=== PATIENT | female | born 1965 | race Caucasian/White ===

== ENCOUNTER 2017-08-31 10:45 | Emergency (ER) | payer OTHER ==
[~2017-08-31] VITALS: Ht 162.6 cm; Wt 59.9 kg
[2017-08-31 10:48] VITALS: BP 137/84
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
[2017-08-31 11:50] VITALS: BP 137/84
--- NOTE | 2017-08-31 11:50 | NUR ---
Patient discharged with v/s stable. Written and verbal after care instructions given and explained. Patient verbalized understanding. Ambulatory with steady gait. All questions addressed prior to discharge. Advised to follow up with PMD.
== END 2017-08-31 11:50 | disposition home or self-care (01) ==
LOC: MED 10:45
DX: S19.9XXA Unspecified injury of neck, initial encounter (principal); Z88.1 Allergy status to other antibiotic agents; Y08.89XA Assault by other specified means, initial encounter; Y93.89 Activity, other specified; Y99.8 Other external cause status; Y92.89 Other specified places as the place of occurrence of the external cause
CPT/HCPCS: 99281

== ENCOUNTER 2019-10-31 12:55 | Emergency (ER) | payer OTHER ==
[~2019-10-31] VITALS: Ht 162.6 cm; Wt 63.5 kg
[2019-10-31 12:59] VITALS: BP 120/69
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
--- NOTE | 2019-10-31 13:16 | NUR ---
ERMD AT BEDSIDE
[2019-10-31] MEDS ORDERED: IBUPROFEN 400 MG TAB PO ONE (13:25)
--- NOTE | 2019-10-31 13:33 | NUR ---
RAD AT BEDSIDE
--- NOTE | 2019-10-31 14:35 | NUR ---
PT RESTING IN BED, SIDE RAIL X1
[2019-10-31 18:14] VITALS: BP 116/61
== END 2019-10-31 18:14 | disposition home or self-care (01) ==
LOC: MED 12:55
DX: R07.89 Other chest pain (principal); Z88.0 Allergy status to penicillin; Z98.890 Other specified postprocedural states
CPT/HCPCS: 36415; 71045; 84484; 93005; 99285; Q0092

== ENCOUNTER 2020-02-19 08:00 | Emergency (ER) | payer OTHER ==
[~2020-02-19] VITALS: Ht 162.6 cm; Wt 63.5 kg
[2020-02-19 08:10] VITALS: BP 113/59
--- NOTE | 2020-02-19 08:10 | NUR ---
TO TENT AMBULATORY
--- NOTE | 2020-02-19 08:20 | NUR ---
SEEN AND EXAMINED BY DAMON WITH ORDER AND CARRIED OUT
--- NOTE | 2020-02-19 09:15 | NUR ---
RESULT BACK AND NOTED BY ERMD AND FOR D/C
[2020-02-19 09:25] VITALS: BP 121/62
--- NOTE | 2020-02-19 09:25 | NUR ---
Patient discharged with v/s stable. Written and verbal after care instructions given and explained. Patient alert, oriented and verbalized understanding of instructions. Ambulatory with steady gait. All questions addressed prior to discharge. ID band removed. Patient advised to follow up with PMD. Rx of PREDNISONE, GUAIATUSSIN AC given. Patient educated on indication of medication including possible reaction and side effects. Opportunity to ask questions provided and answered.
== END 2020-02-19 09:25 | disposition home or self-care (01) ==
LOC: MED 08:00
DX: U07.1 COVID-19 (principal); J20.9 Acute bronchitis, unspecified; Z88.0 Allergy status to penicillin
CPT/HCPCS: 71045; 99283

== ENCOUNTER 2020-09-18 09:18 | Emergency (ER) | payer OTHER ==
[~2020-09-18] VITALS: Ht 162.6 cm; Wt 63.5 kg
[2020-09-18 09:25] VITALS: BP 107/66
[2020-09-18] MEDS ORDERED: METH4TAB27 PO (10:26)
[2020-09-18 10:33] VITALS: BP 107/66
== END 2020-09-18 10:30 | disposition home or self-care (01) ==
LOC: MED 09:18
DX: M48.02 Spinal stenosis, cervical region (principal); R20.0 Anesthesia of skin; Z88.0 Allergy status to penicillin
CPT/HCPCS: 99283

== ENCOUNTER 2020-11-03 15:07 | Emergency (ER) | payer OTHER ==
[~2020-11-03] VITALS: Ht 162.6 cm; Wt 72.6 kg
[~2020-11-03 15:07] MED LIST: METH4TAB27 PO
[2020-11-03 15:36] VITALS: BP 101/51
[2020-11-03] MEDS ORDERED: HYDROcodone/APAP 5/325 MG 1 TAB TAB PO ONE (16:15)
[2020-11-03] MEDS ORDERED: KETOROLAC 15 MG/ML VIAL IM ONE (16:15)
[2020-11-03] MEDS ORDERED: DEXAMETHASONE 10 MG/ML VIAL IM ONE (16:15)
[2020-11-03] MEDS ORDERED: IBUP-2213 PO (16:20)
[2020-11-03] MEDS ORDERED: ACET-8386 PO ×2 (16:20→16:27)
[2020-11-03] MEDS ORDERED: PRED20TA5 PO (16:20)
[2020-11-03] MEDS ORDERED: LID5T TP (16:20)
[2020-11-03] MEDS ORDERED: METH4TAB27 PO (16:26)
--- NOTE | 2020-11-03 17:14 | NUR ---
Patient discharged with v/s stable. Written and verbal after care instructions given and explained. Patient alert, oriented and verbalized understanding of instructions. Ambulatory with steady gait. All questions addressed prior to discharge. ID band removed. Patient advised to follow up with PMD. Rx of [place], Methyprednisolone, Ibuprofen, and Lidocaine patch given. Patient educated on indication of medication including possible reaction and side effects. Opportunity to ask questions provided and answered.
== END 2020-11-03 17:14 | disposition home or self-care (01) ==
LOC: MED 15:07
DX: G89.29 Other chronic pain (principal); M48.02 Spinal stenosis, cervical region; M48.061 Spinal stenosis, lumbar region without neurogenic claudication
CPT/HCPCS: 96372; 99284; J1100; J1885

== ENCOUNTER 2020-12-09 11:24 | Emergency (ER) | payer OTHER ==
[~2020-12-09] VITALS: Ht 162.6 cm; Wt 72.6 kg
[~2020-12-09 11:24] MED LIST changes: +ACET-8386 PO; +IBUP-2213 PO; +LID5T TP
[2020-12-09 11:34] VITALS: BP 138/83
--- NOTE | 2020-12-09 12:03 | NUR ---
PT AMBULATED TO BED 12
[2020-12-09] MEDS ORDERED: KETOROLAC 30 MG/ML VIAL IM ONE (12:20)
[2020-12-09] MEDS ORDERED: diazePAM 5 MG TAB PO ONE (12:20)
[2020-12-09] MEDS ORDERED: DEXAMETHASONE 10 MG/ML VIAL IM ONE (12:20)
--- NOTE | 2020-12-09 12:20 | NUR ---
55/F BIB SELF WITH C/O BACK AND NECK PAIN RADIATING DOWN HER LEGS. PATIENT STATES SHE HAS HAD CHRONIC BACK AND NECK PAIN X1 YEAR, STATES SHE HAS SPINAL SURGERY SCHEDULED ON MARCH 11 BUT STATES PAIN IS WORSENING. PATIENT STATES SHE TAKES IBUPROFEN AND HAS BEEN RX OF TWO MEDS BUT STATES "I CANNOT FUNCTION ON THOSE MEDS." PATIENT DENIES CP, SOB, FEVER OR CHILLS, ABLE TO AMBULATE WITHOUT ASSISTANCE.
[2020-12-09] MEDS ORDERED: METH4TAB27 PO (13:07)
[2020-12-09] MEDS ORDERED: ACET-8386 PO (13:07)
[2020-12-09 13:15] VITALS: BP 117/68
--- NOTE | 2020-12-09 13:15 | NUR ---
Patient discharged with v/s stable. Written and verbal after care instructions given and explained. Patient alert, oriented and verbalized understanding of instructions. Ambulatory with steady gait. All questions addressed prior to discharge. ID band removed. Patient advised to follow up with PMD. Rx of NORCO 5-325 AND METHYPRED-DP given. Patient educated on indication of medication including possible reaction and side effects. ADVISED TO NOT DRINK OR DRIVE WHILE USING NARCOTICS. Opportunity to ask questions provided and answered.
== END 2020-12-09 13:15 | disposition home or self-care (01) ==
LOC: MED 11:24
DX: M54.2 Cervicalgia (principal); M54.50 Low back pain, unspecified; G89.29 Other chronic pain; Z79.899 Other long term (current) drug therapy
CPT/HCPCS: 96372; 99284; J1100; J1885

== ENCOUNTER 2021-03-14 07:17 | Emergency (ER) | payer OTHER ==
[~2021-03-14] VITALS: Ht 162.6 cm; Wt 71.2 kg
[2021-03-14 07:51] VITALS: BP 133/86
[2021-03-14] MEDS ORDERED: methylPREDNISolone SS 40 MG in WATER STERILE 1 ML IM ONE (08:30)
[2021-03-14] MEDS ORDERED: MORPHINE SULFATE 2 MG/ML SYR IM ONE (08:30)
[2021-03-14] MEDS ORDERED: KETOROLAC 30 MG/ML VIAL IM ONE (08:30)
[2021-03-14] MEDS ORDERED: IBUP-2213 PO (08:50)
[2021-03-14] MEDS ORDERED: DICL100G5 TP (08:50)
[2021-03-14] MEDS ORDERED: LID5T TP (08:50)
[2021-03-14] MEDS ORDERED: PRED20TA5 PO (08:50)
[2021-03-14] MEDS ORDERED: WATER STERILE 10 ML MC ONE (09:04)
[2021-03-14] MEDS ORDERED: methylPREDNISolone SS 40 MG/ML VIAL ONE (09:05)
[2021-03-14 09:24] VITALS: BP 133/86
--- NOTE | 2021-03-14 09:24 | NUR ---
Patient discharged with v/s stable. Written and verbal after care instructions given and explained. Patient alert, oriented and verbalized understanding of instructions. Ambulatory with steady gait. All questions addressed prior to discharge. ID band removed. Patient advised to follow up with PMD. Rx of diclofenac, ibuprofen, lidocaine patch, prednisone given. Patient educated on indication of medication including possible reaction and side effects. Opportunity to ask questions provided and answered.
== END 2021-03-14 09:24 | disposition home or self-care (01) ==
LOC: MED 07:17
DX: M54.9 Dorsalgia, unspecified (principal); G89.29 Other chronic pain; Z88.0 Allergy status to penicillin; Z79.899 Other long term (current) drug therapy
CPT/HCPCS: 96372; 99284; J1885; J2270; J2920

== ENCOUNTER 2022-12-29 03:00 | Inpatient (IN) | payer OTHER ==
[~2022-12-29] VITALS: Ht 162.6 cm; Wt 65.8 kg
[~2022-12-29 03:00] MED LIST changes: -ACET-8386 PO; +ACET-8905 PO; +DICL100G32 TP; +PRED20TA5 PO
[2022-12-29 03:11] VITALS: BP 179/90; PULSE 60; RESP 18; TEMP 97.9; O2SAT 99
[2022-12-29 03:36] VITALS: O2SAT 98
[2022-12-29] MEDS ORDERED: DICYCLOMINE 20 MG/2 ML VIAL IM ONE (04:35)
[2022-12-29 05:49] LABS: BASOPHILS % (AUTO) 0.5 % (0.0-2.0); EOSINOPHILS % (AUTO) 0.3 % (0.0-4.0); HEMATOCRIT 37.5 % (36-48); HEMOGLOBIN 12.3 g/dL (12.0-16.0); LYMPHOCYTES # (AUTO) 1.4 K/uL (2.5-16.5); LYMPHOCYTES % (AUTO) 18.4 % (20.5-51.1); MEAN CORPUSCULAR HEMOGLOBIN 28 pg (27-31); MEAN CORPUSCULAR HGB CONC 33 g/dL (33-37); MEAN CORPUSCULAR VOLUME 86.6 fL (80-94); MONOCYTES # (AUTO) 0.4 K/uL (0.8-1.0); MONOCYTES % (AUTO) 5.1 % (1.7-9.3); NEUTROPHILS # (AUTO) 5.9 K/uL (1.8-7.7); NEUTROPHILS % (AUTO) 75.7 % (42.2-75.2); PLATELET COUNT (AUTO) 269 K/uL (140-450); RED BLOOD CELL COUNT(AUTO) 4.33 MIL/uL (4.20-5.40); RED CELL DISTRIBUTION WIDTH 14.4 % (11.6-13.7); WHITE BLOOD COUNT (AUTO) 7.8 K/uL (4.8-10.8)
[2022-12-29 06:01] LABS: ALBUMIN 3.7 g/dL (3.4-5.0); ANION GAP 10.6 (8-16); CALCIUM 8.8 mg/dL (8.5-10.1); CARBON DIOXIDE 28.3 mmol/L (21-32); CREATININE 0.8 mg/dL (0.6-1.3); POTASSIUM 3.9 mmol/L (3.5-5.1); TOTAL BILIRUBIN 0.3 mg/dL (0.0-1.0); TOTAL PROTEIN, SERUM 7.3 g/dL (6.4-8.2)
[2022-12-29 06:41] VITALS: O2SAT 98
[2022-12-29 07:11] LABS: APPEARANCE,URINE CLEAR (CLEAR); BILIRUBIN,URINE NEGATIVE (NEGATIVE); BLOOD, URINE NEGATIVE (NEGATIVE); COLOR,URINE YELLOW (YELLOW); LEUKOCYTE ESTERASE ,URINE NEGATIVE (NEGATIVE); NITRITE, URINE NEGATIVE (NEGATIVE); PROTEIN,URINE NEGATIVE (NEGATIVE); UGLUCOSE NEGATIVE (NEGATIVE); UROBILINOGEN,URINE 0.2 EU/dL (0.2 - 1)
[2022-12-29 09:14] VITALS: O2SAT 98
[2022-12-29] MEDS ORDERED: MORPHINE SULFATE 4 MG/ML SYR IVP ONE (10:00)
[2022-12-29] MEDS ORDERED: POTASSIUM CHLORIDE 10 MEQ TABER PO PRN (10:45)
[2022-12-29] MEDS ORDERED: KCL 20 MEQ IN 100 mL PREMIX 200 ML IV PRN (10:45)
[2022-12-29] MEDS ORDERED: HYDROcodone/APAP 5/325 MG 1 TAB TAB PO PRN (10:45)
[2022-12-29] MEDS ORDERED: MAGNESIUM OXIDE 400 MG TAB PO PRN (10:45)
[2022-12-29] MEDS ORDERED: MAG SULF 2000 MG/WATER PREMIX 50 ML IV PRN (10:45)
[2022-12-29] MEDS: NACL 0.9% 1,000 ML IV SCH ×2 (10:45→23:15)
[2022-12-29] MEDS ORDERED: ACETAMINOPHEN 325 MG TAB PO PRN (10:45)
[2022-12-29] MEDS: metroNIDAZOLE 500 MG/NS PREMIX 100 ML IV SCH ×2 (13:00→21:23)
[2022-12-29] MEDS ORDERED: cefTRIAXone 1,000 MG VIAL ONE (13:16)
[2022-12-29] MEDS: amLODIPine 5 MG TAB PO SCH (15:20)
[2022-12-29 16:00] VITALS: RESP 18; O2SAT 99
[2022-12-29 20:00] VITALS: PULSE 53; RESP 18; O2SAT 97
[2022-12-29] MEDS: MORPHINE SULFATE 4 MG/ML SYR IVP PRN (21:42)
[2022-12-30] VITALS: BP 109/66; PULSE 53; RESP 18; TEMP 98.2; O2SAT 97
[2022-12-30] MEDS: MORPHINE SULFATE 4 MG/ML SYR IVP PRN ×2 (03:49→17:20)
[2022-12-30] MEDS: metroNIDAZOLE 500 MG/NS PREMIX 100 ML IV SCH ×3 (05:22→22:25)
[2022-12-30 05:42] LABS: BASOPHILS % (AUTO) 0.6 % (0.0-2.0); EOSINOPHILS # (AUTO) 0.2 K/uL (0-0.4); EOSINOPHILS % (AUTO) 3.6 % (0.0-4.0); HEMATOCRIT 36.8 % (36-48); HEMOGLOBIN 12.1 g/dL (12.0-16.0); LYMPHOCYTES % (AUTO) 48.8 % (20.5-51.1); MEAN CORPUSCULAR HEMOGLOBIN 28 pg (27-31); MEAN CORPUSCULAR HGB CONC 33 g/dL (33-37); MEAN CORPUSCULAR VOLUME 85.7 fL (80-94); MONOCYTES # (AUTO) 0.4 K/uL (0.8-1.0); MONOCYTES % (AUTO) 5.9 % (1.7-9.3); NEUTROPHILS # (AUTO) 2.5 K/uL (1.8-7.7); NEUTROPHILS % (AUTO) 41.1 % (42.2-75.2); PLATELET COUNT (AUTO) 247 K/uL (140-450); RED BLOOD CELL COUNT(AUTO) 4.29 MIL/uL (4.20-5.40); RED CELL DISTRIBUTION WIDTH 14.1 % (11.6-13.7); WHITE BLOOD COUNT (AUTO) 6.1 K/uL (4.8-10.8)
[2022-12-30 05:57] LABS: ALBUMIN 3.5 g/dL (3.4-5.0); ANION GAP 10.8 (8-16); CALCIUM 8.8 mg/dL (8.5-10.1); CARBON DIOXIDE 29.1 mmol/L (21-32); CREATININE 0.8 mg/dL (0.6-1.3); MAGNESIUM 2.1 mg/dL (1.8-2.4); PHOSPHORUS 4.3 mg/dL (2.5-4.9); POTASSIUM 3.9 mmol/L (3.5-5.1); TOTAL BILIRUBIN 0.3 mg/dL (0.0-1.0); TOTAL PROTEIN, SERUM 6.9 g/dL (6.4-8.2)
[2022-12-30 08:00] VITALS: BP 110/88; PULSE 51; RESP 20; TEMP 97.6; O2SAT 96; O2SAT 97
[2022-12-30] MEDS: amLODIPine 5 MG TAB PO SCH (09:00)
[2022-12-30] MEDS ORDERED: MORPHINE SULFATE 2 MG/ML SYR IVP SCH (10:45)
[2022-12-30] MEDS: NACL 0.9% 1,000 ML IV SCH (13:00)
[2022-12-30 16:00] VITALS: BP 99/58; PULSE 60; RESP 18; TEMP 98.3; O2SAT 100
[2022-12-30 17:05] VITALS: BP 108/52; PULSE 61; RESP 18; TEMP 97.8; O2SAT 97
[2022-12-30 20:00] VITALS: PULSE 59; RESP 18; O2SAT 94
[2022-12-31] VITALS: BP 109/69; PULSE 59; RESP 18; TEMP 98.3; O2SAT 94
[2022-12-31] MEDS: MORPHINE SULFATE 4 MG/ML SYR IVP PRN ×3 (00:06→20:09)
[2022-12-31] MEDS: NACL 0.9% 1,000 ML IV SCH ×4 (00:15→22:37)
[2022-12-31] MEDS: metroNIDAZOLE 500 MG/NS PREMIX 100 ML IV SCH ×3 (04:39→20:09)
[2022-12-31 07:00] LABS: ALBUMIN 3.3 g/dL (3.4-5.0); ANION GAP 11.6 (8-16); CALCIUM 8.7 mg/dL (8.5-10.1); CREATININE 0.8 mg/dL (0.6-1.3); MAGNESIUM 2.2 mg/dL (1.8-2.4); POTASSIUM 4.6 mmol/L (3.5-5.1); TOTAL BILIRUBIN 0.4 mg/dL (0.0-1.0); TOTAL PROTEIN, SERUM 6.8 g/dL (6.4-8.2)
[2022-12-31 07:56] LABS: BASOPHILS % (AUTO) 0.7 % (0.0-2.0); EOSINOPHILS # (AUTO) 0.3 K/uL (0-0.4); EOSINOPHILS % (AUTO) 5.1 % (0.0-4.0); HEMATOCRIT 40.8 % (36-48); HEMOGLOBIN 13.3 g/dL (12.0-16.0); LYMPHOCYTES # (AUTO) 2.6 K/uL (2.5-16.5); LYMPHOCYTES % (AUTO) 38.1 % (20.5-51.1); MEAN CORPUSCULAR HEMOGLOBIN 28 pg (27-31); MEAN CORPUSCULAR HGB CONC 33 g/dL (33-37); MEAN CORPUSCULAR VOLUME 85.7 fL (80-94); MONOCYTES # (AUTO) 0.4 K/uL (0.8-1.0); MONOCYTES % (AUTO) 5.6 % (1.7-9.3); NEUTROPHILS # (AUTO) 3.4 K/uL (1.8-7.7); NEUTROPHILS % (AUTO) 50.5 % (42.2-75.2); PLATELET COUNT (AUTO) 270 K/uL (140-450); RED BLOOD CELL COUNT(AUTO) 4.75 MIL/uL (4.20-5.40); RED CELL DISTRIBUTION WIDTH 14.4 % (11.6-13.7); WHITE BLOOD COUNT (AUTO) 6.8 K/uL (4.8-10.8)
[2022-12-31 08:00] VITALS: BP 118/61; PULSE 54; RESP 18; TEMP 97.1; O2SAT 98
[2022-12-31 08:27] VITALS: PULSE 62; RESP 19; O2SAT 99
[2022-12-31] MEDS: amLODIPine 5 MG TAB PO SCH (09:47)
[2022-12-31 16:00] VITALS: BP 115/65; PULSE 60; RESP 18; TEMP 97.3; O2SAT 96
[2022-12-31 20:00] VITALS: PULSE 64; RESP 18; O2SAT 98
[2023-01-01] VITALS: BP 120/67; PULSE 64; RESP 18; TEMP 98.7; O2SAT 98
[2023-01-01] MEDS: NACL 0.9% 1,000 ML IV SCH ×2 (01:15→13:45)
[2023-01-01 03:41] LABS: BASOPHILS % (AUTO) 0.6 % (0.0-2.0); EOSINOPHILS # (AUTO) 0.4 K/uL (0-0.4); EOSINOPHILS % (AUTO) 6.5 % (0.0-4.0); HEMOGLOBIN 11.9 g/dL (12.0-16.0); LYMPHOCYTES # (AUTO) 2.2 K/uL (2.5-16.5); LYMPHOCYTES % (AUTO) 38.6 % (20.5-51.1); MEAN CORPUSCULAR HEMOGLOBIN 28 pg (27-31); MEAN CORPUSCULAR HGB CONC 32 g/dL (33-37); MEAN CORPUSCULAR VOLUME 86.1 fL (80-94); MONOCYTES # (AUTO) 0.4 K/uL (0.8-1.0); MONOCYTES % (AUTO) 7.8 % (1.7-9.3); NEUTROPHILS # (AUTO) 2.7 K/uL (1.8-7.7); NEUTROPHILS % (AUTO) 46.5 % (42.2-75.2); PLATELET COUNT (AUTO) 258 K/uL (140-450); RED BLOOD CELL COUNT(AUTO) 4.29 MIL/uL (4.20-5.40); RED CELL DISTRIBUTION WIDTH 14.5 % (11.6-13.7); WHITE BLOOD COUNT (AUTO) 5.7 K/uL (4.8-10.8)
[2023-01-01 03:56] LABS: INR 0.92 (0.8-1.2); PROTHROMBIN TIME 9.7 secs (10.8-13.4)
[2023-01-01 04:09] LABS: ALBUMIN 3.4 g/dL (3.4-5.0); ANION GAP 7.9 (8-16); CALCIUM 8.7 mg/dL (8.5-10.1); CREATININE 0.9 mg/dL (0.6-1.3); MAGNESIUM 2.2 mg/dL (1.8-2.4); PHOSPHORUS 4.1 mg/dL (2.5-4.9); POTASSIUM 3.9 mmol/L (3.5-5.1); TOTAL BILIRUBIN 0.2 mg/dL (0.0-1.0); TOTAL PROTEIN, SERUM 6.6 g/dL (6.4-8.2)
[2023-01-01] MEDS: metroNIDAZOLE 500 MG/NS PREMIX 100 ML IV SCH ×3 (05:34→20:34)
[2023-01-01] MEDS ORDERED: BUPIVACAINE MPF 0.25% 10 ML VIAL INJ ONE (07:23)
[2023-01-01] MEDS ORDERED: SEVOFLURANE 250 ML BTL INH ONE (07:30)
[2023-01-01] MEDS ORDERED: fentaNYL citrate 0.05 MG/ML VIAL ONE (07:39)
[2023-01-01] MEDS ORDERED: MIDAZOLAM 2 MG/2 ML VIAL ONE (07:39)
[2023-01-01] MEDS: LIDOCAINE/EPI MPF 1%1:200000 30 ML VIAL INJ ONE ×2 (07:54→09:46)
[2023-01-01 08:00] VITALS: PULSE 67; RESP 20; O2SAT 98
[2023-01-01] MEDS ORDERED: CLINDAMYCIN 900MG/D5W PM 50 ML IV SCH (08:00)
[2023-01-01] MEDS ORDERED: DEXAMETHASONE 4 MG/ML VIAL ONE (08:39)
[2023-01-01] MEDS ORDERED: KETOROLAC 30 MG/ML VIAL ONE (08:40)
[2023-01-01] MEDS ORDERED: ONDANSETRON 4 MG/2 ML VIAL ONE (08:40)
[2023-01-01] MEDS ORDERED: PROPOFOL 200 MG/20 ML VIAL IV ONE (08:41)
[2023-01-01] MEDS ORDERED: NEOSTIGMINE 1:1000 10 MG/10 ML VIAL ONE (08:41)
[2023-01-01] MEDS ORDERED: GLYCOPYRROLATE 0.2 MG/ML VIAL ONE ×2 (08:41)
[2023-01-01] MEDS ORDERED: ROCURONIUM 50 MG/5 ML VIAL IV ONE (08:42)
[2023-01-01] MEDS ORDERED: MEPERIDINE 50 MG/ML SYR ONE (08:49)
[2023-01-01] MEDS ORDERED: HYDROcodone/APAP 5/325 MG 1 TAB TAB PO PRN (09:30)
[2023-01-01] MEDS: HYDROmorphone 1 MG/ML AMP IVP PRN ×4 (09:40→10:10)
[2023-01-01] MEDS ORDERED: HYDROmorphone PFS 2 MG/ML SYR ONE (09:40)
[2023-01-01 10:30] VITALS: BP 125/50; PULSE 60; RESP 18; TEMP 96.4; O2SAT 93
[2023-01-01] MEDS: amLODIPine 5 MG TAB PO SCH (11:29)
[2023-01-01] MEDS: MORPHINE SULFATE 4 MG/ML SYR IVP PRN ×3 (11:32→21:25)
[2023-01-01] MEDS: ONDANSETRON 4 MG/2 ML VIAL IVP PRN (13:56)
[2023-01-01 16:00] VITALS: BP 120/60; PULSE 80; RESP 18; TEMP 97.3; O2SAT 95
[2023-01-01 20:00] VITALS: PULSE 80; RESP 18; O2SAT 93
[2023-01-02] VITALS: BP 135/77; PULSE 78; RESP 18; TEMP 98.6; O2SAT 93
[2023-01-02] MEDS: MORPHINE SULFATE 4 MG/ML SYR IVP PRN ×3 (01:58→12:32)
[2023-01-02] MEDS: NACL 0.9% 1,000 ML IV SCH (02:18)
[2023-01-02] MEDS ORDERED: HYDROmorphone 1 MG/ML AMP IVP ONE (04:10)
[2023-01-02] MEDS: metroNIDAZOLE 500 MG/NS PREMIX 100 ML IV SCH (04:22)
[2023-01-02 07:09] LABS: BASOPHILS % (AUTO) 0.1 % (0.0-2.0); EOSINOPHILS % (AUTO) 0.1 % (0.0-4.0); HEMATOCRIT 32.9 % (36-48); HEMOGLOBIN 10.8 g/dL (12.0-16.0); LYMPHOCYTES % (AUTO) 12.3 % (20.5-51.1); MEAN CORPUSCULAR HEMOGLOBIN 28 pg (27-31); MEAN CORPUSCULAR HGB CONC 33 g/dL (33-37); MEAN CORPUSCULAR VOLUME 85.4 fL (80-94); MONOCYTES # (AUTO) 0.6 K/uL (0.8-1.0); MONOCYTES % (AUTO) 7.6 % (1.7-9.3); NEUTROPHILS # (AUTO) 6.4 K/uL (1.8-7.7); NEUTROPHILS % (AUTO) 79.9 % (42.2-75.2); PLATELET COUNT (AUTO) 239 K/uL (140-450); RED BLOOD CELL COUNT(AUTO) 3.85 MIL/uL (4.20-5.40)
[2023-01-02 08:00] VITALS: BP 123/68; PULSE 82; RESP 16; RESP 19; TEMP 97.6; O2SAT 96
[2023-01-02] MEDS: amLODIPine 5 MG TAB PO SCH (08:58)
[2023-01-02] MEDS ORDERED: LORazepam 1 MG TAB PO SCH (09:00)
[2023-01-02 09:46] LABS: ALBUMIN 3.2 g/dL (3.4-5.0); ANION GAP 16.5 (8-16); CALCIUM 8.5 mg/dL (8.5-10.1); CARBON DIOXIDE 21.5 mmol/L (21-32); CREATININE 0.8 mg/dL (0.6-1.3); MAGNESIUM 1.9 mg/dL (1.8-2.4); PHOSPHORUS 2.7 mg/dL (2.5-4.9); TOTAL BILIRUBIN 0.3 mg/dL (0.0-1.0); TOTAL PROTEIN, SERUM 6.5 g/dL (6.4-8.2)
[2023-01-02] MEDS: ONDANSETRON 4 MG/2 ML VIAL IVP PRN (12:27)
[2023-01-02] MEDS ORDERED: MSCON15 PO (13:19)
[2023-01-02 13:23] VITALS: BP 123/68; PULSE 82; RESP 19; TEMP 97.6
== END 2023-01-02 14:00 | disposition home health service (06) | DRG 263 ==
LOC: MED 03:00 → MTU 11:00 → MMU 13:37 → MTU 12-30 19:45
PROVIDERS: ADMIT Hospitalist; ATTEND Hospitalist
PROC: 0DNU4ZZ Release Omentum, Percutaneous Endoscopic Approach (ICD-10-PCS; 2023-01-01)
PROC: 0FT44ZZ Resection of Gallbladder, Percutaneous Endoscopic Approach (ICD-10-PCS; principal; 2023-01-01 07:30)
DX: K80.00 Calculus of gallbladder with acute cholecystitis without obstruction (principal); G89.4 Chronic pain syndrome; I10 Essential (primary) hypertension; Z88.0 Allergy status to penicillin; Z79.899 Other long term (current) drug therapy; Z79.1 Long term (current) use of non-steroidal anti-inflammatories (NSAID); Z79.891 Long term (current) use of opiate analgesic
CPT/HCPCS: 36415; 71045; 76705; 78445; 80053; 81003; 83690; 83735; 84100; 85025; 85610; 86886; 86900; 86901; 87081; 93005; 96365; 96372; 96375; 97116; 97163-GP; 99285; J0500; J0696; J1100; J1170; J1644; J1885; J2001; J2175; J2250; J2270; J2405; J2704; J2710; J3010; J3490; J7030; J7060; J7120; Q0092